=== PATIENT | female | born 1940 | race Native Hawaiian/Other Pacific Islander ===

== ENCOUNTER → 2019-09-26 | Outpatient (CLI) | payer OTHER ==
[~2019-09-26] MED LIST: ALEN70TA10 PO; AMLO10TA7 PO; Aspirin PO; FERR-6 PO; GLIP1TAB6 PO; HYDR-2132 PO; LINA5TAB PO; LOSA1TAB54 PO; METF-444 PO; METO100T14 PO; SIMV40TA59 PO; TYLENOL ARTHRITIS PO
== END | disposition home or self-care (01) ==
LOC: RAH 11:23
PROVIDERS: ATTEND Internal Medicine
DX: N64.4 Mastodynia (principal)
CPT/HCPCS: 77066

== ENCOUNTER → 2023-06-14 | Outpatient (CLI) | payer OTHER ==
[~2023-06-14] MED LIST changes: -ALEN70TA10 PO; +ALEN70TA80 PO; +AMLO-258 PO; -AMLO10TA7 PO
== END | disposition home or self-care (01) ==
LOC: RAH 13:43
PROVIDERS: ATTEND Internal Medicine
DX: S09.90XA Unspecified injury of head, initial encounter (principal); S09.93XA Unspecified injury of face, initial encounter; W19.XXXA Unspecified fall, initial encounter; E11.65 Type 2 diabetes mellitus with hyperglycemia; D16.4 Benign neoplasm of bones of skull and face; M79.89 Other specified soft tissue disorders; J32.2 Chronic ethmoidal sinusitis; G31.89 Other specified degenerative diseases of nervous system; X58.XXXA Exposure to other specified factors, initial encounter; Y93.89 Activity, other specified; Y92.89 Other specified places as the place of occurrence of the external cause
CPT/HCPCS: 70450; 70480

== ENCOUNTER → 2024-07-28 | Outpatient (CLI) | payer OTHER ==
--- NOTE | 2024-07-28 11:12 | HMCIMG ---
US ABDOMINAL COMPLETE REASON: INTRA- ABDOMINAL SWELLING ,MASS COMPARISON: None FINDINGS: There is mild fatty infiltration of the liver. There are no focal mass lesions. The liver is mildly enlarged at 17 cm.There are several small stones present within an otherwise normal-appearing gallbladder. The common duct is markedly dilated at 1.4 cm consistent with choledocholithiasis. Signed report Right kidney is 7.4 x 4.0 x 3.2 cm, left 8.5 x 4.3 x 3.5. Kidneys are partially atrophic with cortical thinning and markedly echogenic cortex. There are some small cyst on the left. There are no masses or stones. There is no hydronephrosis. Spleen and common duct appear normal. Aorta and inferior vena cava appear normal. The pancreas appears normal as well. IMPRESSION: 1. Echogenic kidneys with cortical thinning consistent with chronic renal disease. 2. Moderate hepatic steatosis, the liver is mildly enlarged at 17 cm. 3. Cholelithiasis, there are small stones in the gallbladder, the common duct is markedly dilated at 1.4 cm consistent with choledocholithiasis.
== END | disposition home or self-care (01) ==
LOC: RAH 09:47
PROVIDERS: ATTEND Internal Medicine
DX: K76.0 Fatty (change of) liver, not elsewhere classified (principal); R16.0 Hepatomegaly, not elsewhere classified; K80.20 Calculus of gallbladder without cholecystitis without obstruction; N28.1 Cyst of kidney, acquired; R19.00 Intra-abdominal and pelvic swelling, mass and lump, unspecified site
CPT/HCPCS: 76700

== ENCOUNTER → 2024-11-21 | Outpatient (CLI) | payer OTHER ==
[~2024-11-21] MED LIST changes: +AMLO-257 PO; +ASPI-1005 PO; +ATOR40TA69 PO; +CARV25TA PO; +EMPA25TA PO; +GABA-529 PO; +ISOS30TA92 PO; +SEMA1PEN3 SQ
[2024-11-21 09:39] LABS: BASOPHILS # (AUTO) 0.03 K/uL (0.00-0.20); BASOPHILS % (AUTO) 0.3 % (0.0-5.0); EOSINOPHILS # (AUTO) 0.32 K/uL (0.00-0.70); EOSINOPHILS % (AUTO) 2.8 % (0.0-8.0); HEMATOCRIT 29.5 % (36-48); IMMATURE GRANULOCYTE ABSOLUTE 0.08 K/uL (0-1); LYMPHOCYTES # (AUTO) 1.9 K/uL (1.0-4.8); LYMPHOCYTES % (AUTO) 16.5 % (21.0-51.0); MEAN CORPUSCULAR HEMOGLOBIN 26.1 pg (27.0-33.0); MEAN CORPUSCULAR HGB CONC 31.2 g/dL (32.0-36.0); MEAN CORPUSCULAR VOLUME 83.8 fL (79-99); MONOCYTES # (AUTO) 0.8 K/uL (0.1-1.0); MONOCYTES % (AUTO) 6.9 % (3.0-13.0); NEUTROPHILS # (AUTO) 8.3 K/uL (1.8-7.7); NEUTROPHILS % (AUTO) 72.8 % (40.0-77.0); PLATELET COUNT (AUTO) 364 K/uL (130-400); RED BLOOD CELL COUNT(AUTO) 3.52 MIL/uL (4.00-5.50); RED CELL DISTRIBUTION WIDTH 14.5 % (11.0-15.5); WHITE BLOOD COUNT (AUTO) 11.4 K/uL (4.8-10.8)
[2024-11-21 09:53] LABS: ALBUMIN 2.7 g/dL (3.5-5.0); BILIRUBIN,TOTAL 0.4 mg/dL (0.2-1.0); CREATININE 1.8 mg/dL (0.5-1.0); POTASSIUM 4.1 mmol/L (3.5-5.1); TOTAL PROTEIN, SERUM 7.2 g/dL (6.0-8.3)
== END | disposition home or self-care (01) ==
LOC: LAB 09:09
PROVIDERS: ATTEND Internal Medicine Gastroenterology
DX: K80.50 Calculus of bile duct without cholangitis or cholecystitis without obstruction (principal); R93.2 Abnormal findings on diagnostic imaging of liver and biliary tract
CPT/HCPCS: 36415; 80053; 85025

== ENCOUNTER 2024-11-22 09:54 | Day surgery (SDC) | payer OTHER ==
--- NOTE | 2024-11-21 12:33 | NUR ---
MESSAGE LEFT TO BE HERE AT 1030 AND BRING ALL HER MEDS, ALSO NOTHING TO EAT OR DRINK AFTER MIDNIGHT
[2024-11-22] VITALS (17 sets, daily range): BP systolic 121–174; BP diastolic 60–80; PULSE 62–78; RESP 14–18; TEMP 97.1–97.9
[~2024-11-22] VITALS: Ht 154.9 cm; Wt 68.0 kg
[~2024-11-22 09:54] MED LIST changes: -ALEN70TA80 PO; -AMLO-258 PO; -Aspirin PO; -FERR-6 PO; -GLIP1TAB6 PO; -HYDR-2132 PO; +INDOMETHACIN 100 MG SUPP.RECT RC ONE; +IOHEXOL-350 50ML VIAL IV ONE; -LINA5TAB PO; -METF-444 PO; -METO100T14 PO; -SIMV40TA59 PO; -TYLENOL ARTHRITIS PO
[2024-11-22] MEDS: 0.9%NACL 1000ML 1,000 ML IV ONE (10:32)
[2024-11-22] MEDS ORDERED: ondanSETRON 4MG INJ ONE (12:01)
[2024-11-22] MEDS ORDERED: proPOFol 10 MG/ML 20ML VIAL IV ONE (12:01)
[2024-11-22] MEDS ORDERED: SUCCINYLCHOLINE CHLORIDE 20 MG/ML 10 ML VIAL ONE (12:01)
--- NOTE | 2024-11-22 13:41 | HMCIMG ---
Fluoroscopic guidance History: CALCULUS OF BILE DUCT WITHOUT CHOLANGITIS OR CHOLECYSTITIS WITHOUT OBSTRUCT Fluoroscopic guidance provided. Procedure by ordering physician in operating room suite with fluoroscopic guidance. Several spot images were obtained. Impression: Fluoroscopic guidance.
== END 2024-11-22 14:05 | disposition home or self-care (01) ==
LOC: SUH 09:54 → DAH 09:54 → SUH 14:05
PROVIDERS: ATTEND Internal Medicine Gastroenterology
DX: R93.2 Abnormal findings on diagnostic imaging of liver and biliary tract (principal); K80.50 Calculus of bile duct without cholangitis or cholecystitis without obstruction; K80.20 Calculus of gallbladder without cholecystitis without obstruction; I10 Essential (primary) hypertension; E11.9 Type 2 diabetes mellitus without complications; E78.5 Hyperlipidemia, unspecified; E66.9 Obesity, unspecified; Z79.899 Other long term (current) drug therapy; Z79.84 Long term (current) use of oral hypoglycemic drugs; Z68.28 Body mass index [BMI] 28.0-28.9, adult; Z98.890 Other specified postprocedural states
CPT/HCPCS: 82948 ×2; 74328; 43264; 43275; J0330; J7030 ×2; J2704; J2405; Q9967; A4215; A4223; A4657; A7002; A4222; A4221; A4663; A4606; C1769; C1773; J3490